=== PATIENT | female | born 1945 | race Hispanic/Latino ===

== ENCOUNTER 2016-10-10 10:53 | Outpatient (CLI) | payer MEDICARE ==
--- NOTE | 2016-10-10 12:07 | Mammography Report ---
BILATERAL MAMMOGRAM with CAD: HISTORY:Cancer screening. Comparison study is dated September 27, 2015. FINDINGS: The breasts are almost entirely fat (<25% glandular). No mass, distortion, suspicious calcification, or skin change is seen. IMPRESSION: Negative mammogram. There is no mammographic evidence of malignancy. RECOMMENDATION: Follow-up per ACS guidelines. BI-RADS CATEGORY: 1 = Negative ACR BI-RADS MAMMOGRAPHIC CODES: 0 = Needs additional imaging evaluation; 1 = Negative; 2 = Benign; 3 = Probably benign; 4 = Suspicious; 5 = Malignant; 6 = Known biopsy-proven malignancy COMMENT: 1. Dense breast tissue, i.e., adenosis, fibrocystic changes, etc., may obscure an underlying neoplasm. 2. Approximately 10% of cancers are not detected with mammography. 3. A negative mammography report should not delay biopsy if a clinically suspicious mass is present. COMMENT: Patient follow-up letters are generated in [employer].
== END 2016-10-10 10:54 | disposition home or self-care (01) ==
LOC: MAMMO 10:53
PROVIDERS: ATTEND Internal Medicine
DX: Z12.31 Encounter for screening mammogram for malignant neoplasm of breast (principal)
CPT/HCPCS: 77067; G0202

== ENCOUNTER 2017-04-17 08:52 | Outpatient (CLI) | payer MEDICARE ==
--- NOTE | 2017-04-17 11:34 | Ultrasound Report ---
ULTRASOUND ABDOMEN COMPLETE: TECHNIQUE: Transabdominal ultrasound with color Doppler interrogation. HISTORY: Fatty liver, liver disease. COMPARISON: No previous abdominal ultrasounds available. FINDINGS: LIVER: The liver is normal size and contour. There may be minimal increased echogenicity of the liver consistent with mild fatty infiltration. No liver mass or surface nodularity is appreciated. This has not significantly changed since the CT chest with contrast dated 12/26/13 in which the liver was partially imaged. BILIARY SYSTEM: Cholecystectomy. No intrahepatic biliary dilatation. The CBD is prominent measuring up to 1.4 cm which is also unchanged since the CT chest dated 12/26/13. PANCREAS: Normal. SPLEEN: Within normal limits. 12.4 cm in length. KIDNEYS: Normal. AORTA/IVC: Normal. ASCITES: None. IMPRESSION: Minimal to mild fatty change of the liver. See above. Cholecystectomy.
== END 2017-04-17 08:53 | disposition home or self-care (01) ==
LOC: US 08:52
PROVIDERS: ATTEND Internal Medicine
DX: K76.0 Fatty (change of) liver, not elsewhere classified (principal); Z90.49 Acquired absence of other specified parts of digestive tract
CPT/HCPCS: 76700

== ENCOUNTER 2019-05-27 12:41 | Outpatient (CLI) | payer MEDICARE ==
--- NOTE | 2019-05-27 16:09 | Mammography Report ---
DIGITAL SCREENING MAMMOGRAM WITH CAD, 05/27/2019 INDICATION: Routine screening mammography. TECHNIQUE: Digital bilateral 2D mammography was obtained in the craniocaudal and mediolateral obliq ue projections. This examination was interpreted with the benefit of Computer-Aided Detection analysi s. COMPARISON: 10/10/2016 FINDINGS: Breast Density: There are scattered areas of fibroglandular density. There is no evidence of dominant mass, suspicious calcifications or architectural distortion in eithe r breast. Bilateral benign calcifications. IMPRESSION: No mammographic evidence of malignancy. Follow up recommendation: Routine yearly BI-RADS Category 2: Benign. A "normal" or negative report should not discourage follow up or biopsy of a clinically significant f inding. A written summary of these findings will be mailed to the patient. The patient will be entered into a mammography reporting system which will generate a reminder letter for the patient's next appointmen t at the appropriate interval. [employer] recommends yearly mammograms starting at age 40 and continuing as l terry as a woman is in good health. Breast MRI is recommended for women with an approximate 20-25% or greater lifetime risk of breast cancer, including women with a strong family history of breast or ova fela cancer or who have been treated for Hodgkin's disease. Signer Name: Marcos Azevedo MD Signed: 05/27/2019 4:04 PM Workstation Name: [id number]
== END 2019-05-27 12:42 | disposition home or self-care (01) ==
LOC: MAMMO 12:41
PROVIDERS: ATTEND Internal Medicine
DX: Z12.31 Encounter for screening mammogram for malignant neoplasm of breast (principal); N64.89 Other specified disorders of breast
CPT/HCPCS: 77067